=== PATIENT | female | born 1985 | race Caucasian/White ===

== ENCOUNTER 2018-12-14 03:04 | Emergency (ER) | payer OTHER ==
[2018-12-14 03:11] VITALS: Ht 167.6 cm
[2018-12-14 04:16] LABS: BASOPHIL % 0.4 % (0-2); PLATELET COUNT 286 x10^3mcL (130-400); RED CELL DISTRIBUTION WIDTH 13.5 % (11.5-14.5)
[2018-12-14 04:24] LABS: CALCIUM 8.7 mg/dL (8.5-10.1); CHLORIDE SERUM 104 mmol/L (98-107); CREATININE SERUM 0.6 mg/dL (0.6-1.0); GFR1 > 60 mL/min; GLUCOSE SERUM 84 mg/dL (74-106); POTASSIUM SERUM 4.2 mmol/L (3.5-5.1); SODIUM SERUM 137 mmol/L (136-145)
[2018-12-14 04:31] LABS: ALKALINE PHOSPHATASE 80 U/L (46-116); ALT/SGPT 85 U/L (14-59); AST/SGOT 71 U/L (15-37); BILIRUBIN TOTAL 0.1 mg/dL (0.20-1.00); MAGNESIUM 1.7 mg/dL (1.8-2.4); TOTAL PROTEIN, SERUM 6.5 g/dL (6.4-8.2)
[2018-12-14 04:32] LABS: ALBUMIN 2.7 g/dL (3.4-5.0)
[2018-12-14 04:46] LABS: microscopic required? YES; urine erythrocyte TRACE (NEGATIVE)
[2018-12-14 07:09] VITALS: BP 154/97
== END 2018-12-14 07:15 | disposition short-term general hospital (02) ==
LOC: ED 03:04
PROVIDERS: Emergency Medicine
DX: O14.93 Unspecified pre-eclampsia, third trimester (principal); O26.893 Other specified pregnancy related conditions, third trimester; R60.1 Generalized edema; Z3A.36 36 weeks gestation of pregnancy
CPT/HCPCS: 83880; J0360; J2765